=== PATIENT | male | born 1970 | race African-American/Black ===

== ENCOUNTER 2021-03-18 10:51 | Observation (INO) | payer BC ==
[2021-03-18 12:14] LABS: Protime INR 0.99
--- NOTE | 2021-03-18 12:27 | RAD REPORT ---
EXAM DESCRIPTION: RAD - Chest Single View - 03/18/2021 12:16 pm CLINICAL HISTORY: CHEST PAIN COMPARISON: None TECHNIQUE: AP portable chest image was obtained 03/18/2021 12:16 pm . FINDINGS: Lungs are clear. Heart and vasculature are normal. No measurable pleural effusion and no p neumothorax. No acute bony abnormality seen. No acute aortic findings suspected. IMPRESSION: No acute cardiopulmonary process.
[2021-03-18 12:34] LABS: ALT/SGPT 59 U/L (12-78); Albumin 4.3 g/dL (3.4-5.0); Alkaline Phosphatase 74 U/L (45-117); BUN Blood Urea Nitrogen 20 mg/dL (7-18); Bicarbonate 26 mmol/L (21-32); Bilirubin Direct < 0.1 mg/dL (0-0.2); Bilirubin Total 0.2 mg/dL (0.2-1.0); Glucose Level 111 mg/dL (74-106); Protein, Total 7.9 g/dL (6.4-8.2); Sodium Level 141 mmol/L (136-145); Troponin (Emerg Dept Use Only) < 0.02 ng/mL (0.0-0.045)
[2021-03-18 12:35] LABS: AST/SGOT 30 U/L (15-37); Magnesium 2.2 mg/dL (1.8-2.4); NT PRO-BNP < 5 pg/mL (<125); Potassium 4.2 mmol/L (3.5-5.1)
--- NOTE | 2021-03-18 12:42 | EDPHYS ---
Physician Documentation [facility] Name: Steven Larose Age: 51 yrs Sex: Male : 1970 Arrival Date: 03/18/2021 Time: 11:17 Bed 14 Private MD: ED Physician Andrey Loaiza HPI: 03/18 11:18 This 51 yrs old Black Male presents to ER via EMS with complaints of Chest Pain. jmm 11:18 The patient or guardian reports chest pain that is located primarily in the substernal [facility] area. Onset: gradually, 3 day(s) ago. The pain radiates to the left arm. Associated signs and symptoms: Pertinent positives: shortness of breath. The chest pain is described as aching, a heaviness, a pressure. Duration: The patient or guardian reports multiple episodes, the episodes last approximately 2 hour(s). Modifying factors: The symptoms are alleviated by nothing. the symptoms are aggravated by nothing. The patient has not experienced similar symptoms in the past. Historical: - Allergies: 11:20 No Known Allergies; vg1 - Home Meds: 11:20 None [Active]; vg1 - PMHx: 11:20 None; vg1 - PSHx: 11:20 spleen; vg1 - Immunization history:: Adult Immunizations up to date, Client reports receiving the 1st dose of the Covid vaccine. - Social history:: Smoking status: Patient denies any tobacco usage or history of. ROS: 11:20 Constitutional: Negative for fever, chills, and weight loss. jmm 11:20 Cardiovascular: Positive for chest pain. 11:20 Respiratory: Positive for shortness of breath. 11:20 All other systems are negative. Exam: 11:20 Constitutional: This is a well developed, well nourished patient who is awake, alert, jmm and in no acute distress. Head/Face: atraumatic. Eyes: EOMI, no conjunctival erythema appreciated ENT: Moist Mucus Membranes Neck: Trachea midline, Supple Chest/axilla: Normal chest wall appearance and motion. Cardiovascular: Regular rate and rhythm. No edema appreciated Respiratory: Normal respirations, no respiratory distress appreciated Abdomen/GI: Non distended, soft Back: Normal ROM Skin: General appearance color normal MS/ Extremity: Moves all extremities, no obvious deformities appreciated, no edema noted to the lower extremities Neuro: Awake and alert, normal gait Psych: Behavior is normal, Mood is normal, Patient is cooperative and pleasant Vital Signs: 11:17 BP 156 / 107; Pulse 94; Resp 16; Temp 97.9; Pulse Ox 100% ; Weight 119.29 kg; Height 5 vg1 ft. 11 in. (180.34 cm); Pain 5/10; 12:30 BP 161 / 98; Pulse 92; Resp 18; Pulse Ox 99% ; Pain 5/10; vg1 15:00 BP 135 / 97; Pulse 96; Resp 16; Pulse Ox 100% on R/A; vg1 16:00 BP 136 / 81; Pulse 90; Resp 14; Pulse Ox 98% on R/A; vg1 17:00 BP 133 / 90; Pulse 89; Resp 18; Pulse Ox 100% on R/A; vg1 11:17 Body Mass Index 36.68 (119.29 kg, 180.34 cm) vg1 MDM: 11:22 Patient medically screened. [facility] 12:41 Data reviewed: vital signs, nurses notes. Counseling: I had a detailed discussion with kostas the patient and/or guardian regarding: the historical points, exam findings, and any diagnostic results supporting the discharge/admit diagnosis, lab results, radiology results, the need for further work-up and treatment in the hospital. ED course: I discussed the patient with Dr. Haq whom accepted the patient for admission. . 03/18 11:18 Order name: Basic Metabolic Panel [facility] 03/18 11:18 Order name: CBC with Diff; Complete Time: 14:17 [facility] 03/18 11:18 Order name: LFT's; Complete Time: 12:37 [facility] 03/18 11:18 Order name: Magnesium; Complete Time: 12:37 [facility] 03/18 11:18 Order name: NT PRO-BNP; Complete Time: 12:37 [facility] 03/18 11:18 Order name: PT-INR; Complete Time: 12:19 [facility] 03/18 11:18 Order name: Troponin (emerg Dept Use Only); Complete Time: 12:37 [facility] 03/18 11:19 Order name: Basic Metabolic Panel; Complete Time: 12:37 [facility] 03/18 13:19 Order name: Basic Metabolic Panel [facility] 03/18 13:19 Order name: Basic Metabolic Panel [facility] 03/18 13:19 Order name: CKMB Creatine Kinase MB [facility] 03/18 13:19 Order name: CKMB Creatine Kinase MB [facility] 03/18 13:19 Order name: CKMB Creatine Kinase MB [facility] 03/18 13:19 Order name: CKMB Creatine Kinase MB [facility] 03/18 11:18 Order name: XRAY Chest (1 view); Complete Time: 12:28 [facility] 03/18 11:18 Order name: EKG; Complete Time: 11:20 [facility] 03/18 11:18 Order name: Cardiac monitoring; Complete Time: 11:35 [facility] 03/18 11:18 Order name: EKG - Nurse/Tech; Complete Time: 11:35 [facility] 03/18 11:18 Order name: IV Saline Lock; Complete Time: 11:29 [facility] 03/18 13:19 Order name: Creatine Phosphokinase [facility] 03/18 13:19 Order name: Creatine Phosphokinase [facility] 03/18 13:19 Order name: Heart Healthy [facility] 03/18 13:19 Order name: EKG Electrocardiogram [facility] 03/18 13:19 Order name: Creatine Phosphokinase [facility] 03/18 13:19 Order name: Troponin I [facility] 03/18 13:19 Order name: Troponin I [facility] 03/18 14:42 Order name: COVID-19 : Document "Date of Symptom Onset" if Symptomatic. [facility] 03/18 15:33 Order name: CORONAVIRUS [facility] 03/18 16:12 Order name: SARS-COV-2 RT PCR; Complete Time: 16:20 [facility] 03/18 11:18 Order name: Labs collected and sent; Complete Time: 12:01 [facility] 03/18 11:18 Order name: O2 Per Protocol; Complete Time: 11:29 [facility] 03/18 11:18 Order name: O2 Sat Monitoring; Complete Time: 11:29 [facility] Administered Medications: 12:44 CANCELLED (Patient recived via EMS around 1100 Provider notified.): Aspirin Chewable vg1 Tablet 324 mg PO once; 81 mg tablets x 4 Disposition: 03/18/21 12:42 Hospitalization ordered by Holger Fischer for Observation. Preliminary diagnosis is Chest pain, unspecified. - Bed requested for Telemetry/MedSurg (observation). - Status is Observation. vg1 - Condition is Stable. - Problem is new. - Symptoms have improved. Addendum: 03/20/2021 10:03 Co-signature as Attending Physician, Andrey Loaiza MD I agree with the assessment and t w4 plan of care. Signatures: Dispatcher [employer] EDMS Marichuy Sequeira Joel, PA PA Lory Wild, RN RN ss Andrey Loaiza MD MD tw4 Jenn Elliott, RN RN vg1 Corrections: (The following items were deleted from the chart) 03/18 12:44 12:41 Aspirin Chewable Tablet 324 mg PO once; 81 mg tablets x 4 ordered. [facility] vg1 13:27 12:42 Hospitalization Ordered by Holger Fischer MD for Observation. Preliminary ss diagnosis is Chest pain, unspecified. Bed requested for Telemetry/MedSurg (observation). Status is Observation. Condition is Stable. Problem is new. Symptoms have improved. [facility] 17:51 13:27 03/18/2021 12:42 Hospitalization Ordered by Holger Fischer MD for Observation. Preliminary diagnosis is Chest pain, unspecified. Bed requested for [facility] ER HOLD. Status is Observation. Condition is Stable. Problem is new. Symptoms have improved. ss 18:39 17:51 03/18/2021 12:42 Hospitalization Ordered by Holger Fischer MD for Observation. vg1 Preliminary diagnosis is Chest pain, unspecified. Bed requested for Telemetry/MedSurg (observation). Status is Observation. Condition is Stable. Problem is new. Symptoms have improved. bd
--- NOTE | 2021-03-18 12:42 | ER ---
Nurse's Notes [facility] Name: Steven Larose Age: 51 yrs Sex: Male : 1970 Arrival Date: 03/18/2021 Time: 11:17 Bed 14 Private MD: Diagnosis: Chest pain, unspecified Presentation: 03/18 11:17 Chief complaint: EMS states: Pt c/o Chest pain that has been going on for a couple of vg1 days and has become worse today. Pt stated pain radiates to the Left arm. EMS stated BP 180/110 with heart rate of 110. Administered Nitro 0.4mg PO x1 and 324 mg of aspirin PO x1. Pts initial pain rate was 8/10. Coronavirus screen: Client denies travel out of the [place] in the last 14 days. Ebola Screen: Patient negative for fever greater than or equal to 101.5 degrees Fahrenheit, and additional compatible Ebola Virus Disease symptoms. Initial Sepsis Screen: Does the patient meet any 2 criteria? No. Patient's initial sepsis screen is negative. Does the patient have a suspected source of infection? No. Patient's initial sepsis screen is negative. Risk Assessment: Do you want to hurt yourself or someone else? Patient reports no desire to harm self or others. Onset of symptoms was March 15, 2021. 11:17 Method Of Arrival: EMS: [facility] vg1 11:17 Acuity: ZANDRA 3 vg1 Historical: - Allergies: 11:20 No Known Allergies; vg1 - Home Meds: 11:20 None [Active]; vg1 - PMHx: 11:20 None; vg1 - PSHx: 11:20 spleen; vg1 - Immunization history:: Adult Immunizations up to date, Client reports receiving the 1st dose of the Covid vaccine. - Social history:: Smoking status: Patient denies any tobacco usage or history of. Screenin:21 Abuse screen: Denies threats or abuse. Nutritional screening: No deficits noted. vg1 Tuberculosis screening: No symptoms or risk factors identified. Fall Risk No fall in past 12 months (0 pts). No secondary diagnosis (0 pts). IV access (20 points). Ambulatory Aid- None/Bed Rest/Nurse Assist (0 pts). Gait- Normal/Bed Rest/Wheelchair (0 pts) Mental Status- Oriented to own ability (0 pts). Total Kunz Fall Scale indicates No Risk (0-24 pts). Assessment: 11:21 General: Appears in no apparent distress. comfortable, Behavior is calm, cooperative. vg1 Pain: Complains of pain in chest Pain radiates to left arm Pain currently is 5 out of 10 on a pain scale. Pain began 1 hour ago. Neuro: Level of Consciousness is awake, alert, obeys commands, Oriented to person, place, time, situation. Neuro: Reports pt states 'im feeling lightheaded". Cardiovascular: Patient's skin is warm and dry. Respiratory: Airway is patent Respiratory effort is even, unlabored. GI: No signs and/or symptoms were reported involving the gastrointestinal system. Patient currently denies diarrhea, nausea, vomiting. : No signs and/or symptoms were reported regarding the genitourinary system. EENT: No signs and/or symptoms were reported regarding the EENT system. Derm: Skin is intact, is healthy with good turgor. Musculoskeletal: Circulation, motion, and sensation intact. 12:01 Reassessment: Labs collected via existing PIV 20G LAC, wasted 10mL prior to collection. sr5 Flushed with NS 10 mL following collection. Continuously tele applied. 12-lead EKG obtained shown to Allen CARABALLO. 12:33 Reassessment: Patient appears in no apparent distress at this time. No changes from vg1 previously documented assessment. Patient and/or family updated on plan of care and expected duration. Pain level reassessed. Patient is alert, oriented x 3, equal unlabored respirations, skin warm/dry/pink. 18:00 Reassessment: attempted to call report. vg1 18:18 Reassessment: Attempted to call report. vg1 Vital Signs: 11:17 BP 156 / 107; Pulse 94; Resp 16; Temp 97.9; Pulse Ox 100% ; Weight 119.29 kg; Height 5 vg1 ft. 11 in. (180.34 cm); Pain 5/10; 12:30 BP 161 / 98; Pulse 92; Resp 18; Pulse Ox 99% ; Pain 5/10; vg1 15:00 BP 135 / 97; Pulse 96; Resp 16; Pulse Ox 100% on R/A; vg1 16:00 BP 136 / 81; Pulse 90; Resp 14; Pulse Ox 98% on R/A; vg1 17:00 BP 133 / 90; Pulse 89; Resp 18; Pulse Ox 100% on R/A; vg1 11:17 Body Mass Index 36.68 (119.29 kg, 180.34 cm) vg1 ED Course: 11:17 Patient arrived in ED. vg1 11:18 Monty Lovell PA is PHCP. [facility] 11:18 Andrey Loaiza MD is Attending Physician. [facility] 11:20 Triage completed. vg1 11:25 Arm band placed on. vg1 11:25 Patient has correct armband on for positive identification. Placed in gown. Bed in low vg1 position. Call light in reach. Side rails up X 1. 11:25 clinical research monitor on. Pulse ox on. NIBP on. vg1 11:25 Patient maintains SpO2 saturation greater than 95% on room air. vg1 11:29 Jenn Elliott, RN is Primary Nurse. vg1 11:29 Maintain EMS IV. Dressing intact. Good blood return noted. Site clean \\T\\ dry. Gauge \\T\\ vg 1 site: 20 g LAC. 12:16 XRAY Chest (1 view) In Process Unspecified. EDMS 12:42 Holger Fischer MD is Hospitalizing Provider. jmm 14:56 COVID swab sent to lab. vg1 18:30 No provider procedures requiring assistance completed. Patient admitted, IV remains in vg1 place. Administered Medications: 12:44 CANCELLED (Patient recived via EMS around 1100 Provider notified.): Aspirin Chewable vg1 Tablet 324 mg PO once; 81 mg tablets x 4 Outcome: 12:42 Decision to Hospitalize by Provider. [facility] 14:58 Admitted to ER Hold. Please see [facility] for further documentation. vg1 18:31 Admitted to Tele accompanied by tech, via wheelchair, room 216, with chart, Report vg1 called to ULISSES Rucker 18:31 Condition: stable 18:31 Instructed on the need for admit. 18:39 Patient left the ED. 1 Signatures: Dispatcher [employer] EDMS Monty Lovell PA PA jmm Resecker, Sam RN RN sr5 Jenn Elliott RN RN vg1
[2021-03-18] MEDS ORDERED: ONDANSETRON 4 MG/2 ML VIAL IV PRN (13:15)
[2021-03-18] MEDS ORDERED: MAGNESIUM HYDROXIDE 8% 30 ML PO PRN (13:15)
[2021-03-18] MEDS ORDERED: ACETAMINOPHEN 500 MG TAB PO PRN (13:15)
--- NOTE | 2021-03-18 13:29 | P.HP ---
Certification for Inpatient Patient admitted to: Observation With expected LOS: <2 Midnights Practitioner: I am a practitioner with admitting privileges, knowledge of patient current condition, hospital course, and medical plan of care. Services: Services provided to patient in accordance with Admission requirements found in Title 42 Section 412.3 of the Code of Federal Regulations Patient History Date of Service: 03/18/21 Reason for admission: Chest pain. History of Present Illness: 51 y o male pt with hx of hypertension who was evaluated in the ED for episode of chest pain. he reported feeling chest pain with radiation into the left arm for a while. this episode are not associated with any particular situation of exertion. pain is rated 6-8 in intensity at its worst. he denied any overt dizzy spells but he does feel light in the left arm on occasions. He denied fever chills rigor, swelling of the legs, N/V or headache. He was worked up with CXR and EKG which were not concerning but because of his age, male gender and family hx of CAD (grand mother was diagnosed at age of 60 something), he was admitted for work up of chest pain. he had no prior work up for chest pain. Review of Systems Unremarkable Eyes: Unremarkable ENT: Unremarkable Respiratory: Unremarkable Cardiovascular: Chest Pain, Light Headedness Gastrointestinal: Unremarkable Genitourinary: Unremarkable Musculoskeletal: Unremarkable Integumentary: Unremarkable Neurological: Unremarkable Physical Examination - Physical Exam General: Alert, Oriented x3 HEENT: Atraumatic, Normocephalic Neck: Supple Respiratory: Clear to auscultation bilaterally Cardiovascular: Regular rate/rhythm, Normal S1 S2 Gastrointestinal: Soft and benign Neurological: Normal speech, Normal strength at 5/5 x4 extr, Cranial nerves 3-12 intact - Studies Laboratory Data (last 24 hrs) 03/18/21 11:45: PT 11.4, INR 0.99 03/18/21 11:45: Sodium 141, Potassium 4.2, BUN 20 H, Creatinine 1.37 H, Glucose 111 H, Magnesium 2.2, Total Bilirubin 0.2, AST 30, ALT 59, Alkaline Phosphatase 74 Assessment and Plan - Plan 1. Chest pain-r/o ACS. his presentation is concerning. we will trend cardiac enzymes and start aspirin therapy. we will obtain echocardiogram, lipid panel, HbA1c and he will be evaluated by cardiology. Morphine will be started for pain control. 2.Obesity-we will continue to encourage weight loss. we will obtain HbA1c for further evaluation. 3. Elevated creatinine-His creatinine is slightly elevated at 1.3. he does not have a hx of CKD. we will follow trend of his renal function and obtain renal US if his creatinine worsens further. Discharge Plan: Home - Advance Directives Does patient have a Living Will: No Does patient have a Durable POA for Healthcare: No
[2021-03-18] MEDS ORDERED: MORPHINE 2 MG/ML SYR IV PRN (14:01)
[2021-03-18 14:05] LABS: Absolute Lymphocytes (CBC) 1.2 K/uL (0.7-4.9); Basophils % 0.8 % (0-1.3); Lymphocytes % 31.9 % (15.3-44.8); MPV 9.5 fL (7.6-11.3); RBC Red Blood Cell Count 5.14 M/uL (4.33-5.43)
[2021-03-18 14:35] VITALS: BMI 36.6
[2021-03-18 20:45] LABS: CKMB Creatine Kinase MB 1.8 ng/mL (0.3-3.6); Creatine Phosphokinase 342 U/L (39-308); Troponin I < 0.02 ng/mL (0.0-0.045)
[2021-03-19 04:53] LABS: BUN Blood Urea Nitrogen 17 mg/dL (7-18); Bicarbonate 26 mmol/L (21-32); CKMB Creatine Kinase MB 1.2 ng/mL (0.3-3.6); Creatine Phosphokinase 286 U/L (39-308); Glucose Level 119 mg/dL (74-106); HDL Cholesterol 41 mg/dL (40-60); LDL Cholesterol, Calculated 125 (<130); Potassium 4.1 mmol/L (3.5-5.1); Sodium Level 139 mmol/L (136-145); Troponin I < 0.02 ng/mL (0.0-0.045)
[2021-03-19 05:19] VITALS: O2SAT 97
[2021-03-19] MEDS ORDERED: ASPIRIN EC 81 MG TAB PO SCH (09:00)
[2021-03-19] MEDS ORDERED: ENOXAPARIN 40 MG/0.4 ML SQ SCH (09:00)
--- NOTE | 2021-03-19 12:17 | EKG ---
Test Date: 2021-03-18 Test Time: 11:27:36 Customer Support Technician: TERRENCE MEASUREMENT RESULTS: Intervals: Rate: 90 CO: 210 QRSD: 74 QT: 340 QTc: 415 [place]: P: 61 CO: 210 QRS: 73 T: 6 INTERPRETIVE STATEMENTS: Sinus rhythm with 1st degree AV block Septal infarct, age undetermined Abnormal ECG No previous ECG available for comparison Electronically Signed On 03-19-21 12:13:37 CDT by Suresh Nur
[2021-03-19 12:18] VITALS: BP 142/93; TEMP 97.8
--- NOTE | 2021-03-19 12:28 | ECHO ---
HEIGHT: 5 ft 11 in WEIGHT: 263 lb 0 oz DATE OF STUDY: 03/19/[address]: Holger Fischer MD 2-DIMENSIONAL: YES M.MODE: YES DOPPLER: YES COLOR FLOW: YES TDS: PORTABLE: DEFINITY: BUBBLE STUDY: DIAGNOSIS: EVALUATION OF CHEST PAIN CARDIAC HISTORY: CATHERIZATION: NO SURGERY: NO PROSTHETIC VALVE: NO PACEMAKER: NO MEASUREMENTS (cm) DIASTOLIC (NORMALS) SYSTOLIC (NORMALS) IVSd 1.3 (0.6-1.2) LA Diam 2.6 (1.9-4.0) LVEF 63% LVIDd 3.9 (3.5-5.7) LVIDs 2.6 (2.0-3.5) %FS 34% LVPWd 1.4 (0.6-1.2) Ao Diam 3.5 (2.0-3.7) 2 DIMENSIONAL ASSESSMENT: RIGHT ATRIUM: LEFT ATRIUM: RIGHT VENTRICLE: LEFT VENTRICLE: TRICUSPID VALVE: MITRAL VALVE: PULMONIC VALVE: AORTIC VALVE: PERICARDIAL EFFUSION: AORTIC ROOT: LEFT VENTRICULAR WALL MOTION: DOPPLER/COLOR FLOW: COMMENTS: NORMAL 2-DIMENSIONAL ECHOCARDIOGRAM WITH DOPPLER. NO WALL MOTION ABNORMALITY. NO EFFUSION. TECHNOLOGIST: AUGIE BARNETT
--- NOTE | 2021-03-19 14:16 | P.DS ---
Admission Date: 03/18/21 Discharge Date: 03/19/21 Disposition: ROUTINE DISCHARGE Discharge Condition: FAIR Reason for Admission: Chest pain. - Problems (1) Chest pain Current Visit: Yes Status: Acute (2) Essential hypertension Current Visit: Yes Status: Acute Brief History of Present Illness: 51-year-old gentleman with a history of hypertension presented to the emergency department with a complaint of sudden onset chest pain with radiation to the left arm, associated with shortness of breath. Workup in the ED with initial troponin was negative. EKG demonstrated sinus rhythm with first-degree AV block. Chest x-ray showed no acute cardiopulmonary process. Patient was placed under observation for chest pain rule out. Hospital Course: Troponin trended negative. Patient was asymptomatic during the hospital stay. Echocardiogram was done which showed normal EF and no wall motion abnormality. His LDL checked was 125. Patient with a couple of risk factors including hypertension and obesity. Patient is physically active and exercise frequently. Diet modification with low-fat low-cholesterol diet advised. ACS has been ruled out. Patient is discharged to follow with Dr. Nur for arrangement for a stress test. Vital Signs/Physical Exam: Temp Pulse Resp BP Pulse Ox 97.8 F 87 18 142/93 H 98 03/19/21 12:00 03/19/21 12:00 03/19/21 12:00 03/19/21 12:00 03/19/21 12:00 General: Alert, In no apparent distress HEENT: Mucous membr. moist/pink Neck: JVD not distended Respiratory: Clear to auscultation bilaterally, Normal air movement Cardiovascular: No edema, Regular rate/rhythm, Normal S1 S2 Gastrointestinal: Normal bowel sounds, Soft and benign, Non-distended, No tenderness Musculoskeletal: No swelling Integumentary: No rashes Neurological: Normal strength at 5/5 x4 extr Laboratory Data at Discharge: WBC 3.70 K/uL (4.3-10.9) L 03/18/21 11:45 Hgb 15.3 g/dL (13.6-17.9) 03/18/21 11:45 Hct 46.0 % (39.6-49.0) 03/18/21 11:45 Plt Count 192 K/uL (152-406) 03/18/21 11:45 PT 11.4 SECONDS (9.5-12.5) 03/18/21 11:45 INR 0.99 03/18/21 11:45 Sodium 139 mmol/L (136-145) 03/19/21 03:47 Potassium 4.1 mmol/L (3.5-5.1) 03/19/21 03:47 BUN 17 mg/dL (7-18) 03/19/21 03:47 Creatinine 1.23 mg/dL (0.55-1.3) 03/19/21 03:47 Glucose 119 mg/dL (74-106) H 03/19/21 03:47 Magnesium 2.2 mg/dL (1.8-2.4) 03/18/21 11:45 Total Bilirubin 0.2 mg/dL (0.2-1.0) 03/18/21 11:45 AST 30 U/L (15-37) 03/18/21 11:45 ALT 59 U/L (12-78) 03/18/21 11:45 Alkaline Phosphatase 74 U/L (45-117) 03/18/21 11:45 Troponin I < 0.02 ng/mL (0.0-0.045) 03/19/21 03:47 Triglycerides 231 mg/dL (<150) H 03/19/21 03:47 Cholesterol 212 mg/dL (<200) H 03/19/21 03:47 HDL Cholesterol 41 mg/dL (40-60) 03/19/21 03:47 Cholesterol/HDL Ratio 5.17 03/19/21 03:47 Home Medications: Aspirin [Aspirin EC 81 MG] 81 mg PO DAILY #30 tablet. 03/19/21 Valsartan [Diovan] 160 mg PO DAILY 03/19/21 New Medications: Aspirin [Aspirin EC 81 MG] 81 mg PO DAILY #30 tablet. Diet: AHA Activity: Ad bernadette Followup: NONE,NONE [Primary Care Provider] - Suresh Nur MD [ACTIVE - CAN ADMIT] - 1-2 Days (For Arrangement for Stress test.)
[2021-03-20] MEDS ORDERED: VALSARTAN 160 MG TAB PO SCH (09:00)
== END 2021-03-19 15:24 | disposition home or self-care (01) ==
LOC: EDBD 10:51 → ER 10:51 → ERHOLD 13:16 → 2ND 18:32
PROVIDERS: ADMIT Internal Medicine Nephrology; ATTEND Internal Medicine
DX: R07.9 Chest pain, unspecified (principal); I10 Essential (primary) hypertension; E66.9 Obesity, unspecified; Z20.822 Contact with and (suspected) exposure to COVID-19; R79.89 Other specified abnormal findings of blood chemistry; Z68.36 Body mass index [BMI] 36.0-36.9, adult
CPT/HCPCS: 93005; 93306; 85025; 80048 ×2; 36415; 83735; 82550 ×2; 85610; 80061; 82947 ×2; 80076; 84484 ×3; 82553 ×2; 83880; 71045; 99285; U0003; J1650; G0378 ×3